=== PATIENT | female | born 1935 | race Caucasian/White ===

== ENCOUNTER 2018-02-04 11:56 | Inpatient (IN) | payer MEDICARE, OTHER ==
[~2018-02-04] VITALS: Ht 160 cm; Wt 88.1 kg
[2018-02-04 12:09] LABS: GLUCOSE,POINT OF CARE 168 MG/DL (70-110)
[2018-02-04] MEDS ORDERED: FUROSEMIDE 40 MG/4 ML VIAL IVP ONE (12:15)
[2018-02-04 12:30] LABS: HEMOGLOBIN 10.9 g/dL (12.0-16.0); MEAN CORPUSCULAR HEMOGLOBIN 27.2 pg (26.0-34.0); MEAN CORPUSCULAR HGB CONC 32.1 G/dL (31.0-37.0); MEAN CORPUSCULAR VOLUME 85 fL (80-100); PLATELET COUNT (AUTO) 192 K/uL (150-450); RED BLOOD CELL COUNT(AUTO) 4.01 MIL/uL (4.00-5.20); RED CELL DISTRIBUTION WIDTH 20.6 % (11.5-14.5)
[2018-02-04 12:42] LABS: PROTHROMBIN TIME 10.8 SEC (9.4-11.6)
[2018-02-04 12:43] LABS: CALCIUM, TOTAL 8.2 mg/dL (8.8-10.5); CREATININE 1.99 mg/dL (0.60-1.30); POTASSIUM 4.3 mmol/L (3.5-5.1)
[2018-02-04 12:55] LABS: BAND NEUTROPHILS % (MANUAL) 30 % (0-5); LYMPHOCYTES % (MANUAL) 4 % (22-44); MONOCYTES % (MANUAL) 2 % (2-9); REACTIVE LYMPHOCYTES 1 % (0-0); SEGMENTED NEUTROPHILS % 63 % (40-70)
[2018-02-04] MEDS ORDERED: CEFEPIME HCL 1 GM in DEXTROSE 5%-WATER 50 ML IV ONE (13:00)
[2018-02-04] MEDS ORDERED: SODIUM CHLORIDE 0.9% 1,000 ML IV ONE ×5 (13:00→18:15)
[2018-02-04 13:01] LABS: ALBUMIN 2.4 g/dL (3.4-5.0); BILIRUBIN,TOTAL 0.8 mg/dL (0.1-1.0); TOTAL PROTEIN, SERUM 5.6 g/dL (6.4-8.2)
[2018-02-04] MEDS ORDERED: VANCOMYCIN HCL 1.25 GM in DEXTROSE 5%-WATER 250 ML IV ONE (13:30)
[2018-02-04 14:07] LABS: APPEARANCE,URINE TURBID (CLEAR); BILIRUBIN,URINE NEGATIVE (NEGATIVE); GLUCOSE, URINE (UA) NEGATIVE (NEGATIVE); KETONES,URINE NEGATIVE (NEGATIVE); LEUKOCYTE ESTERASE ,URINE LARGE (NEGATIVE); NITRATE,URINE NEGATIVE (NEGATIVE); OCCULT BLOOD,URINE SMALL (NEGATIVE); PROTEIN,URINE SEE CONFIRM (NEGATIVE); UROBILINOGEN,URINE 0.2 mg/dL (<=1.0)
[2018-02-04 14:25] LABS: SULFOSALICYLIC ACID,URINE 3+ (Negative)
[2018-02-04] MEDS ORDERED: METO25 PO (14:25)
[2018-02-04] MEDS ORDERED: DOCU250C91 PO (14:25)
[2018-02-04] MEDS ORDERED: INSNOV SQ (14:25)
[2018-02-04] MEDS ORDERED: PSYL660P17 PO (14:25)
[2018-02-04] MEDS ORDERED: CLOZ100 PO (14:25)
[2018-02-04] MEDS ORDERED: LISI-660 PO (14:25)
[2018-02-04] MEDS ORDERED: DIVA500T52 PO (14:25)
[2018-02-04] MEDS ORDERED: LACT30L PO (14:25)
[2018-02-04] MEDS ORDERED: FOLI1TAB15 PO (14:25)
[2018-02-04] MEDS ORDERED: METF500T PO (14:25)
[2018-02-04] MEDS ORDERED: SENN-176 PO (14:25)
[2018-02-04] MEDS ORDERED: [UNRECOGNIZED DRUG - CODE] SQ (14:25)
[2018-02-04] MEDS ORDERED: SIMV-260 PO (14:25)
[2018-02-04] MEDS ORDERED: HYDR-4061 PO (14:25)
[2018-02-04] MEDS ORDERED: OXYB5 PO (14:25)
[2018-02-04] MEDS ORDERED: QUET400T PO (14:25)
[2018-02-04] MEDS ORDERED: OLAN10TA3 PO (14:25)
[2018-02-04] MEDS ORDERED: ACET-2902 PO (14:25)
[2018-02-04] MEDS ORDERED: POLY238P2 PO (14:25)
[2018-02-04] MEDS ORDERED: BENZ1TAB10 PO (14:25)
[2018-02-04] MEDS ORDERED: VITAD1000 PO (14:25)
[2018-02-04 14:27] LABS: BACTERIA,URINE Many /HPF (None Seen); SQUAMOUS EPITHELIAL CELL,UR Few /LPF (None Seen); WBC,URINE 51-100 /HPF (0-5)
[2018-02-04] MEDS ORDERED: LORazepam 2 MG/ML VIAL IVP ONE (15:00)
[2018-02-04] MEDS ORDERED: 0.9% SODIUM CHLORIDE 10 ML SYRINGE IVP PRN (16:15)
[2018-02-04] MEDS ORDERED: ACETAMINOPHEN 325 MG TABLET PO PRN ×2 (16:15→18:15)
[2018-02-04] MEDS ORDERED: ONDANSETRON HCL 4 MG/2 ML VIAL IVP PRN ×2 (16:15→18:15)
[2018-02-04] MEDS ORDERED: BISACODYL 10 MG RECTAL RECTAL SUPPOSITORY PR PRN (18:15)
[2018-02-04] MEDS ORDERED: *CLINICAL-LEVOFLOXACIN IVPB DOSING CLINICAL ONE (18:15)
[2018-02-04] MEDS ORDERED: MAGNESIUM HYDROXIDE SUSPENSION 30 ML UDCUP PO PRN (18:15)
[2018-02-04] MEDS ORDERED: ZOLPIDEM TARTRATE 5 MG TABLET PO PRN (18:15)
[2018-02-04] MEDS ORDERED: HydrALAZINE HCL 20 MG/ML VIAL IVP PRN (18:15)
[2018-02-04] MEDS: LEVOFLOXACIN 750 MG/D5% WATER 150 ML IV SCH (19:47)
[2018-02-04 20:35] LABS: ABG A-A DIFF O2 56.8 mmHg (10-20.0); ABG BASE EXCESS 2.3 mmol/L (-2.0-3.0); ABG CARBOXYHEMOGLOBIN 1.3 % (0.0-1.5); ABG METHEMOGLOBIN 0.4 % (0.0-1.5); ABG OXYGEN CONTENT 15.2 mL/dL (15.0-23.0); ABG OXYGEN SATURATION 98.2 % (95.0-98.0); ABG OXYHEMOGLOBIN 96.5 % (94.0-100.0); ABG PCO2 49 mmHg (35-45); ABG PH 7.366 (7.35-7.450); ABG TOTAL HEMOGLOBIN 11.1 G/dL (12.0-18.0); O2 DEVICE,BLOOD GAS CANNULA (ROOM AIR); PO2, ARTERIAL BG 113.8 mmHg (71.0-79.0); SITE, BLOOD GAS RT RADIAL; SOURCE, BLOOD GAS ARTERIAL; TEMPERATURE, FAHRENHEIT, BG 98.5 FAHREN (96.0-98.6)
[2018-02-04 21:45] VITALS: BP 143/77
[2018-02-04 22:45] VITALS: BP 143/73
[2018-02-04] MEDS: IBUPROFEN 400 MG TABLET PO PRN (22:49)
[2018-02-04] MEDS: OXYBUTYNIN CHLORIDE 5 MG TABLET PO SCH (22:49)
[2018-02-04] MEDS: DOCUSATE SODIUM 100 MG CAPSULE PO SCH (22:49)
[2018-02-05] VITALS (9 sets, daily range): BP systolic 93–143; BP diastolic 50–80
[2018-02-05] MEDS: HEPARIN SODIUM,PORCINE 5,000 UNITS/ML VIAL SQ SCH ×4 (00:47→23:31)
[2018-02-05] MEDS ORDERED: PHENYLEPHRINE 200 MG/D5%-WATER 250 ML IV PRN (01:08)
[2018-02-05 04:55] LABS: BASOPHILS % (AUTO) 0.1 % (0.0-2.0); EOSINOPHILS % (AUTO) 0.5 % (1.0-6.0); HEMATOCRIT 29.6 % (36-46); HEMOGLOBIN 9.6 g/dL (12.0-16.0); LYMPHOCYTES # (AUTO) 0.4 K/uL (1.0-4.8); LYMPHOCYTES % (AUTO) 3.3 % (22.0-44.0); MEAN CORPUSCULAR HEMOGLOBIN 27.4 pg (26.0-34.0); MEAN CORPUSCULAR HGB CONC 32.3 G/dL (31.0-37.0); MEAN CORPUSCULAR VOLUME 85 fL (80-100); MONOCYTES # (AUTO) 0.9 K/uL (0.1-1.0); MONOCYTES % (AUTO) 6.7 % (2.0-9.0); NEUTROPHILS # (AUTO) 11.9 K/uL (1.8-7.7); PLATELET COUNT (AUTO) 156 K/uL (150-450); RED BLOOD CELL COUNT(AUTO) 3.49 MIL/uL (4.00-5.20); RED CELL DISTRIBUTION WIDTH 20.6 % (11.5-14.5)
[2018-02-05 05:02] LABS: NEUTROPHILS % (AUTO) 89.4 % (40.0-70.0)
[2018-02-05] MEDS: IBUPROFEN 400 MG TABLET PO PRN ×2 (05:15→20:01)
[2018-02-05 05:17] LABS: BILIRUBIN,TOTAL 0.6 mg/dL (0.1-1.0); CREATININE 1.5 mg/dL (0.60-1.30); POTASSIUM 3.7 mmol/L (3.5-5.1); TOTAL PROTEIN, SERUM 5.1 g/dL (6.4-8.2)
[2018-02-05] MEDS ORDERED: TraMADol HCL 50 MG TABLET PO PRN (08:15)
[2018-02-05] MEDS: PANTOPRAZOLE SODIUM 40 MG DR TABLET PO SCH (08:29)
[2018-02-05] MEDS: DOCUSATE SODIUM 100 MG CAPSULE PO SCH ×2 (08:29→21:00)
[2018-02-05] MEDS: CHOLECALCIFEROL (VIT D3) 1,000 UNITS TABLET PO SCH (08:29)
[2018-02-05] MEDS: OXYBUTYNIN CHLORIDE 5 MG TABLET PO SCH ×2 (08:29→21:47)
[2018-02-05] MEDS: BENZTROPINE MESYLATE 1 MG TABLET PO SCH (08:29)
[2018-02-05] MEDS ORDERED: 0.9% SODIUM CHLORIDE 5 ML NEB SOLUTION NEB ONE ×2 (09:37→21:34)
[2018-02-05] MEDS: ALBUTEROL SULFATE 2.5 MG/0.5 ML NEB SOLUTION NEB PRN ×2 (09:40→21:37)
[2018-02-05] MEDS: SIMVASTATIN 20 MG TABLET PO SCH (20:00)
[2018-02-06 04:48] VITALS: BP 107/67
[2018-02-06 07:36] VITALS: BP 109/57
[2018-02-06] MEDS: DOCUSATE SODIUM 100 MG CAPSULE PO SCH ×2 (09:02→22:03)
[2018-02-06] MEDS: CHOLECALCIFEROL (VIT D3) 1,000 UNITS TABLET PO SCH (09:02)
[2018-02-06] MEDS: BENZTROPINE MESYLATE 1 MG TABLET PO SCH (09:02)
[2018-02-06] MEDS: HEPARIN SODIUM,PORCINE 5,000 UNITS/ML VIAL SQ SCH ×2 (09:02→16:00)
[2018-02-06] MEDS: PANTOPRAZOLE SODIUM 40 MG DR TABLET PO SCH (09:02)
[2018-02-06] MEDS: OXYBUTYNIN CHLORIDE 5 MG TABLET PO SCH ×2 (09:02→21:59)
[2018-02-06 11:38] VITALS: BP 128/95
[2018-02-06] MEDS: AMIODARONE HCL 200 MG TABLET PO SCH ×2 (12:32→22:04)
[2018-02-06 16:14] VITALS: BP 108/48
[2018-02-06] MEDS ORDERED: 0.9% SODIUM CHLORIDE 5 ML NEB SOLUTION NEB ONE (20:08)
[2018-02-06] MEDS: ALBUTEROL SULFATE 2.5 MG/0.5 ML NEB SOLUTION NEB PRN (20:14)
[2018-02-06 20:56] VITALS: BP 150/60
[2018-02-06] MEDS: METOPROLOL TARTRATE 25 MG TABLET PO SCH (21:59)
[2018-02-06] MEDS: LEVOFLOXACIN 750 MG/D5% WATER 150 ML IV SCH (21:59)
[2018-02-06] MEDS: SIMVASTATIN 20 MG TABLET PO SCH (22:04)
[2018-02-07] VITALS (7 sets, daily range): BP systolic 98–130; BP diastolic 58–80
[2018-02-07 07:32] LABS: BASOPHILS % (AUTO) 0.4 % (0.0-2.0); EOSINOPHILS % (AUTO) 1.3 % (1.0-6.0); HEMOGLOBIN 10.1 g/dL (12.0-16.0); LYMPHOCYTES # (AUTO) 0.6 K/uL (1.0-4.8); MEAN CORPUSCULAR HGB CONC 32.8 G/dL (31.0-37.0); MEAN CORPUSCULAR VOLUME 82 fL (80-100); MONOCYTES # (AUTO) 0.6 K/uL (0.1-1.0); NEUTROPHILS # (AUTO) 3.9 K/uL (1.8-7.7); NEUTROPHILS % (AUTO) 75.3 % (40.0-70.0); RED BLOOD CELL COUNT(AUTO) 3.76 MIL/uL (4.00-5.20); RED CELL DISTRIBUTION WIDTH 19.9 % (11.5-14.5)
[2018-02-07] MEDS: HEPARIN SODIUM,PORCINE 5,000 UNITS/ML VIAL SQ SCH ×4 (08:00→23:16)
[2018-02-07] MEDS: PANTOPRAZOLE SODIUM 40 MG DR TABLET PO SCH (09:00)
[2018-02-07] MEDS: DOCUSATE SODIUM 100 MG CAPSULE PO SCH ×2 (09:00→20:48)
[2018-02-07] MEDS: CHOLECALCIFEROL (VIT D3) 1,000 UNITS TABLET PO SCH (09:00)
[2018-02-07] MEDS: BENZTROPINE MESYLATE 1 MG TABLET PO SCH (09:00)
[2018-02-07] MEDS: AMIODARONE HCL 200 MG TABLET PO SCH ×2 (09:01→20:43)
[2018-02-07] MEDS: OXYBUTYNIN CHLORIDE 5 MG TABLET PO SCH ×2 (09:01→20:43)
[2018-02-07] MEDS: METOPROLOL TARTRATE 25 MG TABLET PO SCH ×2 (09:09→21:00)
[2018-02-07 10:11] LABS: PLATELET COUNT (AUTO) 119 K/uL (150-450)
[2018-02-07 10:28] LABS: CALCIUM, TOTAL 8.6 mg/dL (8.8-10.5); CREATININE 1.03 mg/dL (0.60-1.30); POTASSIUM 4.5 mmol/L (3.5-5.1)
[2018-02-07] MEDS: SIMVASTATIN 20 MG TABLET PO SCH (20:43)
[2018-02-08 00:13] VITALS: BP 112/76
[2018-02-08 04:47] VITALS: BP 121/59
[2018-02-08 07:25] LABS: BASOPHILS % (AUTO) 0.3 % (0.0-2.0); EOSINOPHILS % (AUTO) 1.4 % (1.0-6.0); HEMATOCRIT 30.7 % (36-46); HEMOGLOBIN 10.1 g/dL (12.0-16.0); LYMPHOCYTES # (AUTO) 0.9 K/uL (1.0-4.8); LYMPHOCYTES % (AUTO) 15.7 % (22.0-44.0); MEAN CORPUSCULAR HEMOGLOBIN 27.1 pg (26.0-34.0); MEAN CORPUSCULAR HGB CONC 33.1 G/dL (31.0-37.0); MEAN CORPUSCULAR VOLUME 82 fL (80-100); MONOCYTES % (AUTO) 18.3 % (2.0-9.0); NEUTROPHILS # (AUTO) 3.7 K/uL (1.8-7.7); NEUTROPHILS % (AUTO) 64.3 % (40.0-70.0); PLATELET COUNT (AUTO) 127 K/uL (150-450); RED BLOOD CELL COUNT(AUTO) 3.74 MIL/uL (4.00-5.20); RED CELL DISTRIBUTION WIDTH 20.1 % (11.5-14.5)
[2018-02-08 07:44] LABS: CALCIUM, TOTAL 8.7 mg/dL (8.8-10.5); CREATININE 1.08 mg/dL (0.60-1.30); POTASSIUM 4.9 mmol/L (3.5-5.1)
[2018-02-08] MEDS: HEPARIN SODIUM,PORCINE 5,000 UNITS/ML VIAL SQ SCH ×3 (08:00→16:00)
[2018-02-08 08:10] VITALS: BP 109/65
[2018-02-08] MEDS: PANTOPRAZOLE SODIUM 40 MG DR TABLET PO SCH (08:28)
[2018-02-08] MEDS: DOCUSATE SODIUM 100 MG CAPSULE PO SCH (08:28)
[2018-02-08] MEDS: OXYBUTYNIN CHLORIDE 5 MG TABLET PO SCH (08:28)
[2018-02-08] MEDS: AMIODARONE HCL 200 MG TABLET PO SCH (08:29)
[2018-02-08] MEDS: BENZTROPINE MESYLATE 1 MG TABLET PO SCH (08:30)
[2018-02-08] MEDS: CHOLECALCIFEROL (VIT D3) 1,000 UNITS TABLET PO SCH (08:30)
[2018-02-08] MEDS: METOPROLOL TARTRATE 25 MG TABLET PO SCH (08:31)
[2018-02-08] MEDS ORDERED: ASPIRIN 81 MG EC TABLET PO SCH (09:00)
[2018-02-08] MEDS ORDERED: LEVOFLOXACIN 250 MG TABLET PO SCH (09:00)
[2018-02-08 13:00] VITALS: BP 111/78
[2018-02-08 15:20] VITALS: BP 137/68
[2018-02-08] MEDS ORDERED: LEVO250 PO (15:23)
[2018-02-08] MEDS ORDERED: ASPI-1182 PO (15:25)
[2018-02-08] MEDS ORDERED: PANT40TA25 PO (15:26)
[2018-02-08] MEDS ORDERED: GUAIF10 PO (15:28)
[2018-02-12] MEDS ORDERED: APIX5TAB PO (13:59)
[2018-02-12] MEDS ORDERED: METO50 PO (13:59)
[2018-02-12] MEDS ORDERED: METO25 PO (17:49)
== END 2018-02-08 17:15 | DRG 871 ==
LOC: EMS 11:57 → ICU 19:00 → 5S 02-05 13:10
PROVIDERS: ADMIT Internal Medicine; ATTEND Internal Medicine
PROC: 02HV33Z Insertion of Infusion Device into Superior Vena Cava, Percutaneous Approach (ICD-10-PCS; principal; 2018-02-04)
DX: A41.9 Sepsis, unspecified organism (principal); J96.00 Acute respiratory failure, unspecified whether with hypoxia or hypercapnia; G93.41 Metabolic encephalopathy; N39.0 Urinary tract infection, site not specified; J44.1 Chronic obstructive pulmonary disease with (acute) exacerbation; N17.9 Acute kidney failure, unspecified; E78.5 Hyperlipidemia, unspecified; F29 Unspecified psychosis not due to a substance or known physiological condition; I48.2 Chronic atrial fibrillation; B96.20 Unspecified Escherichia coli [E. coli] as the cause of diseases classified elsewhere; B96.89 Other specified bacterial agents as the cause of diseases classified elsewhere; I50.9 Heart failure, unspecified; I11.0 Hypertensive heart disease with heart failure; E11.9 Type 2 diabetes mellitus without complications; Z88.6 Allergy status to analgesic agent; Z88.1 Allergy status to other antibiotic agents; Z88.0 Allergy status to penicillin; Z88.8 Allergy status to other drugs, medicaments and biological substances; Z87.891 Personal history of nicotine dependence; Z88.5 Allergy status to narcotic agent
CPT/HCPCS: 36556; 82805; 83605; 84443; 87040; 87081; 87086; 87205; 93005; 93306; 94640; 96365; 96366; 96367; 96375; 99291; G0378; J0692; J1644; J1940; J1956; J2060; J2370; J2405; J3370; J7030; J7060